=== PATIENT | female | born 1965 | race African-American/Black ===

== ENCOUNTER → 2016-10-23 | Outpatient (CLI) | payer BC ==
[~2016-10-23] VITALS: Ht 158.8 cm; Wt 111.6 kg
[~2016-10-23] MED LIST: BENICAR HCT 201 EACH PO; CRESTOR20 MG PO; DAILY MULTIPLE1 EAC2 PO; DICYCLOMINE HCL10 MG PO; METFORMIN HCL1000 M3 PO
[2016-10-23 13:02] LABS: POINT-OF-CARE METER ID UU14107333
== END | disposition home or self-care (01) ==
LOC: AMB 12:01
PROVIDERS: Surgery
PROC: 0DJ08ZZ Inspection of Upper Intestinal Tract, Via Natural or Artificial Opening Endoscopic (ICD-10-PCS; principal; 2016-10-23)
DX: K29.70 Gastritis, unspecified, without bleeding (principal); K21.9 Gastro-esophageal reflux disease without esophagitis; E66.01 Morbid (severe) obesity due to excess calories; Z68.41 Body mass index [BMI] 40.0-44.9, adult; E11.9 Type 2 diabetes mellitus without complications; I10 Essential (primary) hypertension; E78.5 Hyperlipidemia, unspecified; K58.9 Irritable bowel syndrome, unspecified; M19.90 Unspecified osteoarthritis, unspecified site; R39.81 Functional urinary incontinence; J30.9 Allergic rhinitis, unspecified; Z79.84 Long term (current) use of oral hypoglycemic drugs; Z90.710 Acquired absence of both cervix and uterus; Z90.49 Acquired absence of other specified parts of digestive tract; Z87.891 Personal history of nicotine dependence; Z82.49 Family history of ischemic heart disease and other diseases of the circulatory system; Z83.49 Family history of other endocrine, nutritional and metabolic diseases; Z82.5 Family history of asthma and other chronic lower respiratory diseases
CPT/HCPCS: 82948; J2250

== ENCOUNTER 2017-02-27 21:14 | Inpatient (IN) | payer BC ==
[~2017-02-27] VITALS: Ht 157.5 cm; Wt 104.7 kg
[~2017-02-27 21:14] MED LIST changes: +ADVIL200 MG PO; +ALEVE220 MG PO
[2017-02-28 08:34] VITALS: BP 134/68; BP 134/69
[2017-02-28 12:19] VITALS: BP 167/71
[2017-02-28 17:32] VITALS: BP 153/66
[2017-02-28 20:42] VITALS: BP 196/83
[2017-02-28 23:17] VITALS: BP 160/69
[2017-03-01 03:33] VITALS: BP 159/70
[2017-03-01 07:42] VITALS: BP 143/64
[2017-03-01 07:50] LABS: HEMOGLOBIN 12.7 G/DL (11.9-15.5); MCHC 34.3 G/DL (30.0-36.0); MCV 87.3 FL (83-99); PLATELET COUNT 282 K/uL (156-360); RBC DIS.WIDTH-CV 12.8 % (11.8-14.6); RBC DIS.WIDTH-SD 40.7 % (39-53); RED BLOOD COUNT 4.24 M/uL (3.80-5.20); WHITE BLOOD COUNT 14.3 K/uL (4.1-10.2)
[2017-03-01 08:29] LABS: CHLORIDE 102 MEQ/L (99-109); CREATININE 0.6 MG/DL (0.6-1.3); GFR ESTIMATE (CALCULATED) > 59 mL/min/; GLUCOSE 133 mg/dL (70-99); MAGNESIUM 1.8 mg/dl (1.3-2.7); PHOSPHORUS 3.2 mg/dL (2.5-4.9); SODIUM 137 MEQ/L (136-147); UREA NITROGEN (BUN) 9 mg/dL (9-23)
[2017-03-01 12:02] VITALS: BP 138/61
[2017-03-01 15:47] VITALS: BP 151/67
[2017-03-01] MEDS ORDERED: REGLAN10 MG PO (16:52)
[2017-03-01] MEDS ORDERED: NORCO 5/3251 TABLET PO (16:52)
[2017-03-01] MEDS ORDERED: PANTOPRAZOLE SO40 MG PO (16:53)
[2017-03-01] MEDS ORDERED: CARAFATE100 MG/ML PO (16:55)
[2017-03-01] MEDS ORDERED: OLMESARTAN MEDO20 MG PO (16:56)
== END 2017-03-01 19:30 | disposition home or self-care (01) | DRG 621 ==
LOC: ENRESERV 21:14 → 2SOUTH 02-28 07:14 → ENRESERV 02-28 09:29 → 2SOUTH 02-28 11:39 → 2WEST 02-28 12:30 → ENRESERV 03-01 11:00 → 2EAST 03-01 13:57
PROVIDERS: Surgery
PROC: 0DB64Z3 Excision of Stomach, Percutaneous Endoscopic Approach, Vertical (ICD-10-PCS; principal; 2017-02-28)
DX: E66.01 Morbid (severe) obesity due to excess calories (principal); Z68.41 Body mass index [BMI] 40.0-44.9, adult; I10 Essential (primary) hypertension; E78.5 Hyperlipidemia, unspecified; E11.9 Type 2 diabetes mellitus without complications; Z90.710 Acquired absence of both cervix and uterus; Z87.891 Personal history of nicotine dependence
CPT/HCPCS: 80048; 82948; 83735; 84100; 85027; C9113; J0131; J0330; J0360; J0690; J1100; J1170; J1644; J1650; J1885; J2250; J2270; J2405; J2710; J2765; J3010; J3480; J7120; S0020